=== PATIENT | male | born 1970 | race Caucasian/White ===

== ENCOUNTER 2023-08-31 08:42 | Emergency (ER) | payer OTHER ==
[~2023-08-31] VITALS: Ht 182.9 cm; Wt 145.2 kg
[2023-08-31 08:50] VITALS: BP 72/53
[2023-08-31] MEDS ORDERED: NS 1,000 ML IV ONE (08:50)
[2023-08-31] MEDS ORDERED: Tranexamic Acid 1000 MG/10 ML 10ML Vial (SDV) ONE (08:55)
--- NOTE | 2023-08-31 09:00 | NUR ---
"Spiritual Care | Trauma Team Pt. joseph nguyen treated in ED and then was being brought to radiologu for CatScans. During this time this Cloth Dye Range Operator met with spouse and Pts. daughter in the ED waiting room. Facilitated a short life review. Considered matters of randell and belief. Prayer with Spouse and daughter. Both verbalizwed gratitude for the spiritual care visit. This corrugator operator will remain available to the Pt. and family."
[2023-08-31 09:12] LABS: EOSINOPHILS ABSOLUTE AUTO 0.07 K/mm3 (0.00-0.68); EOSINOPHILS PERCENT AUTO 0 % (0-6); Hematocrit 49.5 % (37.0-53.0); Hemoglobin 15.7 g/dL (13.5-17.5); IMMATURE GRAN ABSOLUTE AUTO 0.66 K/mm3 (0.00-0.10); IMMATURE GRAN PERCENT AUTO 2 % (0-1); LYMPHOCYTES ABSOLUTE AUTO 6.05 K/mm3 (0.84-5.20); LYMPHOCYTES PERCENT AUTO 22 % (21-46); MONOCYTES ABSOLUTE AUTO 1.27 K/mm3 (0.16-1.47); MONOCYTES PERCENT AUTO 5 % (4-13); Mean Corpuscular HGB Conc 31.7 g/dL (31.5-36.5); Mean Corpuscular Volume 85 fL (80-100); Mean Platelet Volume 10.7 fL (9.1-12.4); NEUTROPHILS ABSOLUTE AUTO 19.93 K/mm3 (1.96-9.15); NEUTROPHILS PERCENT AUTO 71 % (41-73); NRBC ABSOLUTE 0.05 K/mm3 (0.00-0.02); NRBC Auto 0.2 /100 WBC (0.0-0.2); Platelet Count 394 K/mm3 (150-400); RDW Coefficient Variation 14.1 % (11.7-14.2); Red Blood Cell Count 5.81 M/mm3 (4.30-5.90); White Blood Cell Count 28.01 K/mm3 (4.00-11.30)
[2023-08-31 09:13] LABS: BASOPHILS ABSOLUTE AUTO 0.03 K/mm3 (0.00-0.23); BASOPHILS PERCENT AUTO 0 % (0-2)
[2023-08-31] MEDS ORDERED: CeFAZolin Sodium 2,000 MG in NS 100 ML IV ONE (09:25)
[2023-08-31] MEDS ORDERED: Diphth,Pertuss(Acell),Tet Vac 0.5 ML VIAL IM ONE (09:25)
[2023-08-31 09:26] LABS: Albumin, Blood 3.6 g/dL (3.4-5.0); Albumin/Globulin Ratio 0.9 (0.8-1.8); Bilirubin, Total 0.6 mg/dL (0.1-1.0); Bun/Creatinine Ratio 17.5 (12.0-20.0); Calcium, Blood 8.9 mg/dL (8.5-10.1); Creatinine, Blood 1.2 mg/dL (0.60-1.20); Total Protein, Blood 7.6 g/dL (6.4-8.2)
[2023-08-31] MEDS ORDERED: Tranexamic Acid 100 ML IV ONE ×2 (09:34→09:45)
[2023-08-31 09:37] LABS: PCO2 Arterial 33.1 mmHg (35-45); pH Blood Arterial 7.32 (7.35-7.45)
[2023-08-31 09:38] LABS: PO2 Arterial 76.2 mmHg (80-100)
[2023-08-31] MEDS ORDERED: Metoprolol Tartrate 5 ML IV ONE ×2 (10:05→10:24)
[2023-08-31 10:09] LABS: BAND PERCENT MAN 3 % (0-8); BASOPHILS PERCENT MAN 0 % (0-2); EOSINOPHILS PERCENT MAN 0 % (0-6); LYMPHOCYTES ABSOLUTE MAN 7.56 K/mm3 (0.84-5.20); LYMPHOCYTES PERCENT MAN 27 % (21-46); MONOCYTES ABSOLUTE MAN 0.56 K/mm3 (0.16-1.47); MONOCYTES PERCENT MAN 2 % (4-13); NEUTROPHILS ABSOLUTE MAN 19.88 K/mm3 (1.96-9.15); SEG NEUTROPHILS PERCENT MAN 68 % (41-73); TOTAL CELLS COUNTED 100
[2023-08-31] MEDS ORDERED: Metoprolol Tartrate 1 MG/ML 5 ML VIAL IV ONE (10:10)
[2023-08-31] MEDS ORDERED: FentaNYL Citrate 50 MCG/ML 2 ML Injection IV ONE (10:15)
== END 2023-08-31 10:25 | disposition short-term general hospital (02) ==
LOC: ER 08:42
PROVIDERS: Emergency Medicine
DX: S22.43XA Multiple fractures of ribs, bilateral, initial encounter for closed fracture (principal); S25.01XA Minor laceration of thoracic aorta, initial encounter; S27.331A Laceration of lung, unilateral, initial encounter; S36.113A Laceration of liver, unspecified degree, initial encounter; S81.812A Laceration without foreign body, left lower leg, initial encounter; S27.2XXA Traumatic hemopneumothorax, initial encounter; V04.90XA Pedestrian on foot injured in collision with heavy transport vehicle or bus, unspecified whether traffic or nontraffic accident, initial encounter
CPT/HCPCS: 36600; 70450; 71045; 71260; 72125; 72170; 73030; 73590; 74177; 80053; 82803; 84484; 85025; 90715; J0690; J3010; J7030; P9016; P9035; P9059; Q9967

== ENCOUNTER 2023-10-14 07:45 | Inpatient (IN) | payer OTHER ==
[~2023-10-14] VITALS: Ht 182.9 cm; Wt 138.9 kg
[2023-10-14] MEDS ORDERED: HYDROmorphone HCl/Pf 1MG SYR IV ONE ×4 (08:20→18:00)
[2023-10-14] MEDS ORDERED: Ondansetron HCl 2 MG / ML 2ML Vial IV ONE ×2 (08:20→18:00)
[2023-10-14] MEDS ORDERED: Lactated Ringer's 1,000 ML IV ONE ×2 (08:20→09:10)
[2023-10-14] MEDS ORDERED: Ondansetron 4 MG SoluTab SL ONE (08:35)
[2023-10-14 09:04] LABS: Albumin, Blood 3.8 g/dL (3.4-5.0); Albumin/Globulin Ratio 0.9 (0.8-1.8); Bilirubin, Total 2.6 mg/dL (0.1-1.0); Bun/Creatinine Ratio 24.8 (12.0-20.0); Calcium, Blood 9.6 mg/dL (8.5-10.1); Creatinine, Blood 0.65 mg/dL (0.60-1.20); Globulin, Blood 4.4 g/dL (2.2-4.0); Potassium, Blood 4.1 mmol/L (3.5-5.5); Total Protein, Blood 8.2 g/dL (6.4-8.2)
[2023-10-14] MEDS ORDERED: Piperacillin/Tazobactam Sod 4.5 GM in NS 100 ML IV ONE (09:30)
[2023-10-14] MEDS ORDERED: Piperacillin/Tazobactam Sod 4.5 GM ONE (09:45)
[2023-10-14] MEDS ORDERED: NS 100 ML IV ONE (09:46)
[2023-10-14 09:57] LABS: BASOPHILS ABSOLUTE AUTO 0.03 K/mm3 (0.00-0.23); BASOPHILS PERCENT AUTO 0 % (0-2); EOSINOPHILS ABSOLUTE AUTO 0.01 K/mm3 (0.00-0.68); EOSINOPHILS PERCENT AUTO 0 % (0-6); Hematocrit 46.5 % (37.0-53.0); Hemoglobin 14.7 g/dL (13.5-17.5); IMMATURE GRAN ABSOLUTE AUTO 0.07 K/mm3 (0.00-0.10); IMMATURE GRAN PERCENT AUTO 1 % (0-1); LYMPHOCYTES ABSOLUTE AUTO 1.47 K/mm3 (0.84-5.20); LYMPHOCYTES PERCENT AUTO 14 % (21-46); MONOCYTES ABSOLUTE AUTO 0.86 K/mm3 (0.16-1.47); MONOCYTES PERCENT AUTO 8 % (4-13); Mean Corpuscular HGB 25.4 pg (26.0-34.0); Mean Corpuscular HGB Conc 31.6 g/dL (31.5-36.5); Mean Corpuscular Volume 80 fL (80-100); Mean Platelet Volume 9.2 fL (9.1-12.4); NEUTROPHILS ABSOLUTE AUTO 8.31 K/mm3 (1.96-9.15); NEUTROPHILS PERCENT AUTO 77 % (41-73); Platelet Count 296 K/mm3 (150-400); RDW Coefficient Variation 15.1 % (11.7-14.2); RDW Standard Deviation 43.4 fL (35.1-46.3); Red Blood Cell Count 5.79 M/mm3 (4.30-5.90); White Blood Cell Count 10.75 K/mm3 (4.00-11.30)
[2023-10-14] MEDS ORDERED: NS 1,000 ML IV SCH (17:00)
[2023-10-14] MEDS ORDERED: HYDROmorphone HCl/Pf 1MG SYR IV PRN (17:40)
[2023-10-14 17:50] LABS: Source, Urine Clean Catch
[2023-10-14 17:57] LABS: Appearance, Urine Cloudy (Clear); Bilirubin, Urine Neg (Neg); Blood, Urine Neg (Neg); Color, Urine Yellow (P-Yellow); Glucose Qualitative, Urine Neg (Neg); Ketones, Urine Neg (Neg); Leukocyte Esterase, Urine 1+ (Neg); Nitrite, Urine Neg (Neg); Protein, Urine 2+ (Neg); Urobilinogen, Urine 1+ (Normal)
[2023-10-14 18:04] LABS: Amorphous Mod (0-Heavy); Bacteria Few /hpf; Red Blood Cells, Urine 0-2 /hpf (0-2); Squamous Epithelial Cells Not Seen /hpf (Few)
[2023-10-14] MEDS ORDERED: Metoprolol Tartrate 25 MG Tab PO ONE (18:30)
[2023-10-15] MEDS ORDERED: HYDROmorphone HCl/Pf 1MG SYR IV PRN ×2 (00:05→23:10)
[2023-10-15] MEDS ORDERED: Ondansetron 4 MG SoluTab MM PRN (00:10)
[2023-10-15] MEDS ORDERED: Ciprofloxacin 400MG/D5 200ML 200 ML IV ONE (00:50)
[2023-10-15] MEDS ORDERED: MetroNIDAZOLE 500MG/NS 100 ml 100 ML IV ONE (00:50)
[2023-10-15] MEDS ORDERED: Lactated Ringer's 1,000 ML IV SCH ×2 (01:00→18:45)
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
--- NOTE | 2023-10-15 05:12 | NUR ---
URINE SAMPLE COLLECTED AND SENT TO LAB. LR INFUSING @ 225mL/HR. WCTM.
[2023-10-15] MEDS ORDERED: NS 250 ML IV PRN (05:20)
[2023-10-15 07:47] VITALS: BP 135/65
[2023-10-15] MEDS ORDERED: Lactobacil 2-S.Thermo-Bifido 1 1 Cap PO SCH (09:00)
[2023-10-15] MEDS ORDERED: Enoxaparin 40 MG/0.4 ML SYR SC SCH (09:00)
[2023-10-15] MEDS ORDERED: MetroNIDAZOLE 500MG/NS 100 ml 100 ML IV SCH (09:00)
[2023-10-15] MEDS ORDERED: Ciprofloxacin 400MG/D5 200ML 200 ML IV SCH ×2 (09:00→10:00)
[2023-10-15 09:45] LABS: BASOPHILS ABSOLUTE AUTO 0.04 K/mm3 (0.00-0.23); BASOPHILS PERCENT AUTO 0 % (0-2); EOSINOPHILS ABSOLUTE AUTO 0.02 K/mm3 (0.00-0.68); EOSINOPHILS PERCENT AUTO 0 % (0-6); Hematocrit 39.7 % (37.0-53.0); Hemoglobin 12.3 g/dL (13.5-17.5); IMMATURE GRAN ABSOLUTE AUTO 0.11 K/mm3 (0.00-0.10); IMMATURE GRAN PERCENT AUTO 1 % (0-1); LYMPHOCYTES ABSOLUTE AUTO 1.16 K/mm3 (0.84-5.20); LYMPHOCYTES PERCENT AUTO 7 % (21-46); MONOCYTES ABSOLUTE AUTO 1.17 K/mm3 (0.16-1.47); MONOCYTES PERCENT AUTO 7 % (4-13); Mean Corpuscular HGB 25.6 pg (26.0-34.0); Mean Corpuscular Volume 83 fL (80-100); Mean Platelet Volume 9.6 fL (9.1-12.4); NEUTROPHILS ABSOLUTE AUTO 14.64 K/mm3 (1.96-9.15); NEUTROPHILS PERCENT AUTO 86 % (41-73); Platelet Count 262 K/mm3 (150-400); RDW Coefficient Variation 15.7 % (11.7-14.2); RDW Standard Deviation 47.2 fL (35.1-46.3); Red Blood Cell Count 4.81 M/mm3 (4.30-5.90); White Blood Cell Count 17.14 K/mm3 (4.00-11.30)
[2023-10-15 09:50] LABS: International Normalized Ratio 1.26; Prothrombin Time Results 13.3 Sec (9.7-11.5)
[2023-10-15 10:11] LABS: Albumin, Blood 3.1 g/dL (3.4-5.0); Albumin/Globulin Ratio 0.8 (0.8-1.8); Bilirubin, Total 1.4 mg/dL (0.1-1.0); Bun/Creatinine Ratio 18.9 (12.0-20.0); Calcium, Blood 8.8 mg/dL (8.5-10.1); Creatinine, Blood 0.64 mg/dL (0.60-1.20); Globulin, Blood 3.8 g/dL (2.2-4.0); Potassium, Blood 4.2 mmol/L (3.5-5.5); Total Protein, Blood 6.9 g/dL (6.4-8.2)
[2023-10-15 15:13] VITALS: BP 158/82
--- NOTE | 2023-10-15 17:24 | NUR ---
NO ACUTE CHANGES, PAIN MEDICATIONS INCREASED FOR COMFORT, TO HAVE MRI AT 1800, HELPFUL AT BEDSIDE, [facility] REPORTED TODAY THAT PATIENT IS STILL ACCEPTED BUT THERE IS NOT A BED AVAILABLE. PATIENT USING IS FOR SHALLOW SLOW RESPIRATIONS. VSS, CONCENTRATED TEA COLORED URINE, LS DIM IN THE BASES, CALL LIGHT WITH IN REACH, WILL RELAY TO PM RN
[2023-10-15] MEDS ORDERED: METOPROLOL TART25 MG PO (18:10)
[2023-10-15] MEDS ORDERED: ELIQUIS5 M3 PO (18:11)
--- NOTE | 2023-10-15 18:16 | NUR ---
PATIENT TO MRI NOW
[2023-10-15 20:22] VITALS: BP 124/71
[2023-10-15] MEDS ORDERED: Naloxone HCl 0.4MG / ML 1ML Vial IV PRN (23:10)
[2023-10-15 23:24] LABS: Hematocrit 38.7 % (37.0-53.0); Hemoglobin 11.9 g/dL (13.5-17.5)
--- NOTE | 2023-10-16 01:08 | NUR ---
PHYSICIAN CONTACT AND CALL FROM [facility] PHONE CALL TO CHEMICAL DEPENDENCY ATTENDANT/DR MIGUEL AT 2300 TO REPORT MRI RESULTS HAD BEEN READ AND REPORT ELECTRONICALLY SIGNED. MRI SHOWS POSSIBLE HEPATIC HEMATOMA AND POSSIBLE ADRENAL GLAND HEMORAGE WITH CONFIRMED PACREATITIS. NEW ORDER TO CHECK HGB NOW AND AGAIN IN THE MORNING. INFORMED DR OF STATUS OF VITALS AND PERSISTANT PAIN. REQUESTED REVIEW FOR MORE FREQUENT DOSING. DR INCREASED DILAUDID DOSAGE AND KEPT AT SAME INTERVAL [id number]. NEW ORDER FOR CONTINUOUS PULSE OX. DR AWARE PT IS WAITING FOR A BED WITH [facility]. PHONE CALL FROM SUNDAY AT 0100 IN THE TRANSFER CENTER AT [facility]; REQUESTING UPDATE ON PT STATUS. ADVISED OF MRI RESULTS, WBC, HGB, VITALS, AND CURRENT MEDICATIONS. SUNDAY REQUESTED RESULTS FROM MRI BE FORWARDED TO [facility]; SHE ALSO REQUESTED CONTACT [facility] IF PT CONDITION CHANGES. PT IS CURRENTLY AWAITING A [facility] BED BUT IF STATUS OF PT CHANGES, PLEASE INFORM SOON POSSIBLE. NO ETA AT THIS TIME OF WHEN BED WILL BE AVAILABLE. PHONE NUMBER FOR [facility] TRANSFER CENTER IS [phone]. PHONE CALL TO IMAGING, SPOKE TO KAYE. ADVISED OF PHONE CALL FROM [facility] AND [facility] REQUEST TO FORWARD MRI RESULTS. KAYE CONFIRMED SHE WOULD ATTEMPT TO SEND IMAGES THROUGH [facility]. PROVIDED NAME OF PERSON SPOKE WITH AT [facility]. PROVIDED PT NAME, , AND ROOM NUMBER.
[2023-10-16 04:11] VITALS: BP 125/69
[2023-10-16 04:24] LABS: BASOPHILS ABSOLUTE AUTO 0.05 K/mm3 (0.00-0.23); BASOPHILS PERCENT AUTO 0 % (0-2); EOSINOPHILS ABSOLUTE AUTO 0.14 K/mm3 (0.00-0.68); EOSINOPHILS PERCENT AUTO 1 % (0-6); Hemoglobin 12.1 g/dL (13.5-17.5); IMMATURE GRAN ABSOLUTE AUTO 0.07 K/mm3 (0.00-0.10); IMMATURE GRAN PERCENT AUTO 1 % (0-1); LYMPHOCYTES ABSOLUTE AUTO 1.65 K/mm3 (0.84-5.20); LYMPHOCYTES PERCENT AUTO 11 % (21-46); MONOCYTES ABSOLUTE AUTO 1.59 K/mm3 (0.16-1.47); MONOCYTES PERCENT AUTO 11 % (4-13); Mean Corpuscular HGB 25.9 pg (26.0-34.0); Mean Corpuscular Volume 84 fL (80-100); Mean Platelet Volume 9.5 fL (9.1-12.4); NEUTROPHILS ABSOLUTE AUTO 11.51 K/mm3 (1.96-9.15); NEUTROPHILS PERCENT AUTO 77 % (41-73); Platelet Count 227 K/mm3 (150-400); RDW Coefficient Variation 15.6 % (11.7-14.2); RDW Standard Deviation 47.3 fL (35.1-46.3); Red Blood Cell Count 4.67 M/mm3 (4.30-5.90); White Blood Cell Count 15.01 K/mm3 (4.00-11.30)
[2023-10-16 04:56] LABS: Albumin, Blood 2.8 g/dL (3.4-5.0); Albumin/Globulin Ratio 0.7 (0.8-1.8); Bilirubin, Total 5.8 mg/dL (0.1-1.0); Calcium, Blood 8.8 mg/dL (8.5-10.1); Creatinine, Blood 0.69 mg/dL (0.60-1.20); Globulin, Blood 3.8 g/dL (2.2-4.0); Potassium, Blood 4.3 mmol/L (3.5-5.5); Total Protein, Blood 6.6 g/dL (6.4-8.2)
--- NOTE | 2023-10-16 06:35 | NUR ---
PHYSICAL SCIENTIST SUMMARY SEE PREVIOUS NURSE NOTE WITH PHYSICIAN CONTACT AND [facility] CONTACT-- PT A/OX4. ABLE TO MAKE NEEDS KNOWN. PT PAIN MORE MANAGED WITH INCREASE DOSE OF DILAUDID. PT URINE THE COLOR OF DARK TEA AND OUTPUT FOR SHIFT WAS ONLY 425MLS. PT DENIES SENSATION OF FULL BLADDER. PT DOES REPORT HE FEELS FULL/BLOATED; ABD IS BLOATED AND PAINFUL. PT PLACED ON 2L OF 02 NC DUE TO DROP IN OXYGEN SATURATION AFTER PAIN MEDICATIONS. WHEN AWAKE/ALERT PT OXYGEN SATURATIONS ARE WNL. PT IS ABLE TO MAKE NEEDS KNOWN--CALL LIGHT ACCESSIBLE.
[2023-10-16 07:44] VITALS: BP 130/85
--- NOTE | 2023-10-16 12:38 | NUR ---
PATIENT WITH MULTIPLE FAMILY MEMBERS AT BEDSIDE WITH QUESTIONS. ASKED PATIENT IF HE WOULD LIKE TO KNOW HIS LACTIC ACID LEVEL AND GLUCOSE LEVEL AND HE SAID YES. ASKED IF OKAY WITH REVIEWING WHILE FAMILY AT BEDSIDE AND HE AGREED. DISCUSSION REGARDING SAIF AND IMPORTANCE OF ABIDING BY PROVIDER'S ORDERS. ENSURED VERBAL RELEASE OF INFORMATION SIGNED AND HAD DAUGHTER'S INFORMATION ON IT SHE HAS MANY QUESTIONS. TIME SPENT DESCALATING AND PROVIDING EDUCATION.
[2023-10-16 14:32] VITALS: BP 139/78
--- NOTE | 2023-10-16 16:17 | NUR ---
SHIFT SUMMARY; PATIENTS WOUND DRESSING CHANGE TO LEFT LOWER LEG. HEALING WELL AND NO EXUDATE OR SWELLING NOTED. PATIENT WAITING FOR BED AT [facility] PER REPORT. PATIENT AMBULATES IN HALLWAY DURING DAY USING FWW WITHOUT DIFFICULTY. DAUGHTER AND SPOUSE ACCOMPANY HIM. VITAL SIGNS ARE STABLE. HE IS SLIGHTLY TACHY WHEN PAIN MEDICATION WEARS OFF BUT RECOVERS QUICKLY.
--- NOTE | 2023-10-16 18:11 | NUR ---
TRANSFER NOTE ASSUMED CARE OF THIS PT AT 1630. NO NEW EVENTS SINCE THE ASSUMPTION. PT CALLS AND MAKES HIS NEEDS KNOWN. FAMILY AT THE BS. WILL REPORT TO ONCOMING NURSE. BED IN THE LOWEST POSITION WITH THE CALL LIGHT WITHIN REACH.
[2023-10-16] MEDS ORDERED: Calcium Carbonate 500 MG Tab Chew PO PRN (18:20)
[2023-10-16 20:20] VITALS: BP 121/80
[2023-10-16] MEDS ORDERED: Polyethylene Glycol 3350 17 gm PO SCH (21:00)
[2023-10-16] MEDS ORDERED: Sennosides 8.6 MG Tab PO SCH (21:00)
[2023-10-17 02:35] VITALS: BP 121/61
[2023-10-17] MEDS ORDERED: Docusate Sodium/Senna 1 Tab PO PRN (05:40)
[2023-10-17 05:46] LABS: Albumin, Blood 2.6 g/dL (3.4-5.0); Albumin/Globulin Ratio 0.7 (0.8-1.8); Bilirubin, Total 3.4 mg/dL (0.1-1.0); Bun/Creatinine Ratio 12.6 (12.0-20.0); Creatinine, Blood 0.48 mg/dL (0.60-1.20); Globulin, Blood 3.8 g/dL (2.2-4.0); Potassium, Blood 4.3 mmol/L (3.5-5.5); Total Protein, Blood 6.4 g/dL (6.4-8.2)
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
[2023-10-17 07:50] VITALS: BP 123/75
--- NOTE | 2023-10-17 11:03 | NUR ---
DR DIALLO TO BEDSIDE TO CONSULT.
[2023-10-17 14:58] VITALS: BP 136/84
[2023-10-17] MEDS ORDERED: OxyCODONE 5 mg/Acetamin 325 mg TABLET PO PRN (17:30)
[2023-10-17] MEDS ORDERED: Enoxaparin 40 MG/0.4 ML SYR SC SCH (18:00)
[2023-10-17 20:39] VITALS: BP 126/74
[2023-10-17] MEDS ORDERED: Miconazole Nitrate 2% 85 GM PWD TOP SCH (21:00)
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
[2023-10-18 02:55] VITALS: BP 148/95
--- NOTE | 2023-10-18 05:14 | NUR ---
DRAMATIC AGENT SUMMARY PT IS A/OX4 W/SOME FORGETULNESS. PT IS ABLE TO MAKE NEEDS KNOWN. DAUGHTER AT BEDSIDE FOR A FEW HOURS IN THE EVENING. PT CONTINUES TO EXPRESS CONCERN FOR ABD PRESSURE; STATING HE FEELS FULL UP TO HIS NECK; DIFFICULTY TOLERATING ANY PO INTAKE/PILLS. HE IS ABLE TO KEEP THEM DOWN WITH NAUSEA; ZOFRAN GIVEN. PT LEGS/FEET ARE SWOLLEN WITH NON-PITTING EDEMA. PT IS CONTINUING TO GET LR AT 150MLS HR; STRICT I&O'S HAVE NOT BEEN DOCUMENTED; HOWEVER APPEARS TO BE FLUID IMBALANCE AND DIMINISHED URINE OUTPUT. PT WEIGHT THIS AM IS 149.4KG WITH INCREASE OF 4.4KG (9.7LBS) IN THREE DAYS. PT IS GETTING BOWEL CARE; NO BM AND PT DENIES FEELING CONSTIPATED OR NEED FOR BOWEL MOVEMENT. PT EDUCATION ON EFFECT OF PAIN MED REGARDING CONSTIPATION. PT AGREEABLE TO CUTTING BACK ON PAIN MEDS AND FEELS PAIN IS IMPROVING. ONE ORAL PERCOSET DURING THE SHIFT. PT REQUIRING 2L O2 WHEN SLEEPING DUE TO DESAT. PT ON CONTINUOUS PULSE OX. PHONE CALL FROM STEFFANY AT THE [facility] TRANSFER CENTER. STILL NO BED AVAILABLE BUT REQUESTING UPDATE. ADVISED STEFFANY OF SURGICAL CONSULT RESULTS WITH NO NEED FOR SURGICAL INTERVENTION AND POTENTIAL DISCHARGE. ALSO ADVISED OF LABS AND CURRENT CONCERN/CONDITION OF PT. STEFFANY ADVISED THEY WOULD STILL CALL FOR UPDATES. REQUESTED NOTIFICATION IF PT IS INFACT DISCHARGED.
[2023-10-18 05:48] LABS: Albumin, Blood 2.4 g/dL (3.4-5.0); Albumin/Globulin Ratio 0.6 (0.8-1.8); Bilirubin, Total 1.9 mg/dL (0.1-1.0); Bun/Creatinine Ratio 11.2 (12.0-20.0); Calcium, Blood 8.8 mg/dL (8.5-10.1); Creatinine, Blood 0.54 mg/dL (0.60-1.20); Globulin, Blood 3.9 g/dL (2.2-4.0); Potassium, Blood 3.3 mmol/L (3.5-5.5); Total Protein, Blood 6.3 g/dL (6.4-8.2)
[2023-10-18 07:17] VITALS: BP 143/78
[2023-10-18] MEDS ORDERED: NS 250 ML IV PRN (11:25)
[2023-10-18] MEDS ORDERED: Metoclopramide HCl 5MG / ML 2ML Vial IV PRN (11:30)
[2023-10-18] MEDS ORDERED: Potassium Chl 20MEQ/Water100ML 100 ML IV ONE (11:30)
[2023-10-18] MEDS ORDERED: Pantoprazole Sodium 40 MG Injection IV SCH (11:30)
--- NOTE | 2023-10-18 13:29 | NUR ---
DR. TELLEZ ROUNDED AT APPROXIMATELY 1100. FAMILY PRESENT WHEN SHE ROUNDED AND MULTIPLE CONCERNS DISCUSSED. THIS RN DISCUSSED WEIGHT GAIN FROM ADMIT WITH BLE EDEMA 2-3+, LUNG SOUNDS DIM BUT CLEAR. DISCUSSED PT HAVING BURING IN HIS THROAT AND EPIGASTRIC DISCOMFORT, PROTONIX ORDERED. PT CHANGED BACK TO SIPS AND CHIPS DIET TO ADVANCE TOLERATED TO CLEAR LIQUID TRAYS. NOTIFIED DR. TELLEZ OF LOW POTASSIUM. DR. TELLEZ ASKED THIS RN TO REACH OUT TO DR. DIALLO AND ASK HIM TO ROUND ON PT AGAIN TODAY, DR. DIALLO REQUESTED THIS RN REACH OUT TO DR. VEE SINCE HE COVERING FOR DR. DIALLO. DISCUSSED LOW ALBUMIN WITH DR. TELLEZ, PER DR. TELLEZ KITCHEN PORTER CONSULT NOT INDICATED AT THIS TIME.
--- NOTE | 2023-10-18 13:39 | NUR ---
DR. VEE NOTIFIED OF REQUEST BY DR. TELLEZ TO ROUND ON PT TODAY.
[2023-10-18] MEDS ORDERED: HYDROmorphone HCl/Pf 1MG SYR IV PRN (14:50)
[2023-10-18 15:19] VITALS: BP 140/70
[2023-10-18] MEDS ORDERED: Nystatin 100,000 Unit/ML Susp 5 ML UDC MT SCH (17:00)
[2023-10-18 19:22] VITALS: BP 121/70
[2023-10-18] MEDS ORDERED: Fluconazole 100 MG Tab PO SCH (19:50)
--- NOTE | 2023-10-18 20:01 | NUR ---
SHIFT SUMMARY PT HAS REPORTED EPIGASTRIC DISCOMFORT MUCH OF THE DAY, HE REPORTS FEELING TO FULL. PT TRANSITIONED FROM FULL LIQUID DIET TO CLEAR LIQUID SIPS AND CHIPS ONLY. PT STARTED ON PROTONIX FOR EPIGASTRIC DISCOMFORT AND REGLAN FOR NAUSEA. PT HAS HAD BMS X2. HE IS A SBA WHEN OOB. PT HAS ALSO COMPLAINED OF A BURNING FEELING IN HIS THROAT, SORENESS TO THE SIDES OF HIS TONGUE, AND METALIC TASTE, DR. TELLEZ NOTIFIED AND ORDERED NYSTATIN SWISH AND SWALLOW, PT WAS ALSO SEEN BY THE DENTAL HYGENIST. THIS EVENING HE REPORTED A SORE IN HIS MOUTH, RAD RODRIGEZ NOTIFIED. PT HAS REDNESS AND PAIN TO GROIN/PENIS, APPEARS TO HAVE A YEAST INFECTION, DURING BEDSIDE REPORT PT DECLINED DESONEX POWDER, ANGEL LEROY RN TO F/U REGARDING PO OR CREAM ANTIFUNGAL. PT ALSO REPORTS BURINING WITH URINATION, RAD RODRIGEZ NOTIFIED. PT'S FAMILY HAS BEEN AT THE BEDSIDE AND SUPPORTIVE T/O THE DAY. EDUCATION REGARDING PT'S CONDITION PROVIDED AND QUESTIONS ANSWERED. BEDSIDE REPORT GIVEN TO RAD RODRIGEZ.
[2023-10-18] MEDS ORDERED: Miconazole Nitrate 28 GM CREAM..G. TOP SCH (21:00)
[2023-10-19 02:40] VITALS: BP 149/92
[2023-10-19 05:29] LABS: BASOPHILS ABSOLUTE AUTO 0.04 K/mm3 (0.00-0.23); BASOPHILS PERCENT AUTO 1 % (0-2); EOSINOPHILS ABSOLUTE AUTO 0.24 K/mm3 (0.00-0.68); EOSINOPHILS PERCENT AUTO 3 % (0-6); Hematocrit 34.8 % (37.0-53.0); Hemoglobin 10.7 g/dL (13.5-17.5); IMMATURE GRAN ABSOLUTE AUTO 0.12 K/mm3 (0.00-0.10); IMMATURE GRAN PERCENT AUTO 1 % (0-1); LYMPHOCYTES ABSOLUTE AUTO 1.54 K/mm3 (0.84-5.20); LYMPHOCYTES PERCENT AUTO 18 % (21-46); MONOCYTES ABSOLUTE AUTO 0.91 K/mm3 (0.16-1.47); MONOCYTES PERCENT AUTO 10 % (4-13); Mean Corpuscular HGB 25.2 pg (26.0-34.0); Mean Corpuscular HGB Conc 30.7 g/dL (31.5-36.5); Mean Corpuscular Volume 82 fL (80-100); Mean Platelet Volume 8.8 fL (9.1-12.4); NEUTROPHILS PERCENT AUTO 67 % (41-73); Platelet Count 254 K/mm3 (150-400); RDW Coefficient Variation 15.3 % (11.7-14.2); Red Blood Cell Count 4.24 M/mm3 (4.30-5.90); White Blood Cell Count 8.75 K/mm3 (4.00-11.30)
[2023-10-19 06:07] LABS: Albumin, Blood 2.4 g/dL (3.4-5.0); Albumin/Globulin Ratio 0.6 (0.8-1.8); Bilirubin, Total 1.4 mg/dL (0.1-1.0); Bun/Creatinine Ratio 10.4 (12.0-20.0); Calcium, Blood 8.8 mg/dL (8.5-10.1); Creatinine, Blood 0.58 mg/dL (0.60-1.20); Globulin, Blood 3.7 g/dL (2.2-4.0); Potassium, Blood 3.5 mmol/L (3.5-5.5); Total Protein, Blood 6.1 g/dL (6.4-8.2)
--- NOTE | 2023-10-19 06:46 | NUR ---
BRANCH LENDING MANAGER SUMMARY PT A/OX4. NO ACUTE CHANGES. CALL TO MIXING OPERATOR/DR MARX; NEW ORDER FOR ORAL DIFLUCAN TO TX WIN RASH; NEW ORDER FOR MICONOZOLE CREAM TO TX WIN RASH. D/C FUNGAL POWDER. PT IS ABL ETO MAKE NEEDS KNOWN. CALL LIGHT IN REACH. PT DENIES PAIN; CONTINUES TO REPORT FULL/BLOATED FEELING.
[2023-10-19 07:45] VITALS: BP 148/87
[2023-10-19] MEDS ORDERED: Enoxaparin 150 MG/ML 1ML SYR SC SCH (10:15)
[2023-10-19 14:41] VITALS: BP 140/75
--- NOTE | 2023-10-19 17:02 | NUR ---
SHIFT SUMMARY PT AMBULATED THIS AM. ATTEMPT TO HAVE BM, PT STATES HE HAD VERY SMALL LIQ STOOL. PT SHOWERED TODAY. THOUROUGH CLEANSING TO PENIS DONE AFTER PT SHOWERED & NYSTATIN APPLIED TO AREA. POOR APPETITE. PT REFUSING CLEAR LIQ DIET. REFUSED MIRALAX TODAY. ENCAOURGING PT TO TAKE SIPS OF ICE WATER TO HELP KEEP MOUTH MOIST. PT COMPLAINS MOUTH/THROAT HURT AND HE HAD ABD PRESSURE, MAKING HIM NOT WANT TO DRINK OR EAT. ORAL CARE COMPLETED TODAY & NYSTATIN SWISH & SWALLOW ORDERED. PG RUNNING LR AT 100ML/HR. PT DENIES OTHER NEEDS AT THIS TIME. FLAT AFFECT. VISITS FROM FAMILY T/O DAY. DR. MILLIGAN IN TO CONSULT TODAY. LOVENOX ORDER CHANGED & ADMINISTERED. NO OTHER ACUTE CHANGES IN ASSESSMENT AT THIS TIME. VS REVIEWED. CALL LIGHT IN REACH. DENIES OTHER NEEDS AT THIS TIME.
[2023-10-19] MEDS ORDERED: Benzocaine Oral Spray 0.5ML UD MT PRN (17:20)
[2023-10-19 19:27] VITALS: BP 144/84
[2023-10-20 04:41] VITALS: BP 144/80
[2023-10-20 07:35] VITALS: BP 145/83
[2023-10-20 08:55] LABS: BASOPHILS ABSOLUTE AUTO 0.05 K/mm3 (0.00-0.23); BASOPHILS PERCENT AUTO 1 % (0-2); EOSINOPHILS ABSOLUTE AUTO 0.27 K/mm3 (0.00-0.68); EOSINOPHILS PERCENT AUTO 3 % (0-6); Hematocrit 35.2 % (37.0-53.0); Hemoglobin 10.9 g/dL (13.5-17.5); IMMATURE GRAN ABSOLUTE AUTO 0.32 K/mm3 (0.00-0.10); IMMATURE GRAN PERCENT AUTO 4 % (0-1); LYMPHOCYTES PERCENT AUTO 21 % (21-46); MONOCYTES ABSOLUTE AUTO 0.75 K/mm3 (0.16-1.47); MONOCYTES PERCENT AUTO 9 % (4-13); Mean Corpuscular HGB 25.1 pg (26.0-34.0); Mean Corpuscular Volume 81 fL (80-100); Mean Platelet Volume 9.2 fL (9.1-12.4); NEUTROPHILS ABSOLUTE AUTO 5.15 K/mm3 (1.96-9.15); NEUTROPHILS PERCENT AUTO 63 % (41-73); Platelet Count 263 K/mm3 (150-400); RDW Coefficient Variation 15.4 % (11.7-14.2); RDW Standard Deviation 45.3 fL (35.1-46.3); Red Blood Cell Count 4.35 M/mm3 (4.30-5.90); White Blood Cell Count 8.24 K/mm3 (4.00-11.30)
[2023-10-20 09:15] LABS: Albumin, Blood 2.3 g/dL (3.4-5.0); Albumin/Globulin Ratio 0.6 (0.8-1.8); Bilirubin, Total 1.7 mg/dL (0.1-1.0); Bun/Creatinine Ratio 14.2 (12.0-20.0); Calcium, Blood 8.6 mg/dL (8.5-10.1); Creatinine, Blood 0.56 mg/dL (0.60-1.20); Potassium, Blood 3.6 mmol/L (3.5-5.5); Total Protein, Blood 6.3 g/dL (6.4-8.2)
[2023-10-20] MEDS ORDERED: TPN Consult Notification XX ONE (10:45)
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
[2023-10-20 15:52] VITALS: BP 134/81
[2023-10-20] MEDS ORDERED: Parenteral Electolytes 40 ML,Potassium Phosphate Dibasic 30 MM,Multivitamins 10 ML,ZINC... IV SCH (17:00)
[2023-10-20 20:26] VITALS: BP 142/85
[2023-10-21 04:19] VITALS: BP 151/62
[2023-10-21 06:51] LABS: Alanine Aminotransfer (ALT/SGP 112 U/L (12-78); Albumin, Blood 2.5 g/dL (3.4-5.0); Albumin/Globulin Ratio 0.6 (0.8-1.8); Alk Phos 595 U/L (50-136); Anion Gap 14 mmol/L (3-11); Aspartate Aminotrans (AST/SGOT 55 U/L (12-37); Bilirubin, Total 0.8 mg/dL (0.1-1.0); Blood Urea Nitrogen 6 mg/dL (8-24); Bun/Creatinine Ratio 11.5 (12.0-20.0); CO2, Blood 25 mmol/L (21-32); Calcium, Blood 8.8 mg/dL (8.5-10.1); Chloride, Blood 103 mmol/L (98-108); Creatinine, Blood 0.52 mg/dL (0.60-1.20); Globulin, Blood 4.2 g/dL (2.2-4.0); Glomerular Filtration Rate 121 (60-); Glucose, Blood 143 mg/dL (70-99); Phosphorus, Blood 4.2 mg/dL (2.5-4.9); Sodium, Blood 138 mmol/L (136-145); Total Protein, Blood 6.7 g/dL (6.4-8.2); Triglycerides 172 mg/dL (30-160)
[2023-10-21 07:23] VITALS: BP 137/83
--- NOTE | 2023-10-21 07:34 | NUR ---
SHIFT SUMMARY PT IND IN ROOM. SLOW. WALKER IN HALLWAY. PPN INFUSING. THIS AM PT NOTIFIED ME OF SWELLING TO R ARM AND BILATERAL LE. RIGHT UPPER ARM POWERGLIDE INFUSING PROPERLY AND HAVE ADEQUATE BLOOD RETURN. CHARGE NURSE IRWIN ANGUIANO ASSESSED WELL. DOES NOT SEEM TO BE INFILTRATED. ELEVATED ALL EXTREMITIES ON PILLOWS. URINATING VIA URINALS, URINATES 1,200 ML AT ONE TIME OCCASIONALLY WITH VERY MINIMAL ORAL INTAKE. CALLS APPROPRIATELY. BED LOCKED IN LOW POSITION
[2023-10-21] MEDS ORDERED: Furosemide 10 MG/ML 4ML Vial IV SCH (10:00)
[2023-10-21] MEDS ORDERED: TPN Consult Notification XX ONE (11:40)
[2023-10-21 15:40] VITALS: BP 134/81
[2023-10-21] MEDS ORDERED: Parenteral Electolytes 40 ML,Multivitamins 10 ML,ZINC SULF/CUSO4 P-HYD/MN/CR/SE 1 ML,Th... IV SCH (17:00)
--- NOTE | 2023-10-21 18:16 | NUR ---
PT HAS BEEN UP FOR A WALK WITH FAMILY TODAY. HE IS CURENTLY IN THE SHOWER WILL PROVIDE PERICARE WHEN HE IS OUT OF THE SHOWER. PPN IS INFUSING WELL. HE DENIES CP OR SOB. HE WAS MEDICATED FOR 6/10 PAIN PRIOR TO SHOWER. REPORTED PLAN IS FOR POSSIBLE YINKA TOMORROW WITH DR MILLIGAN. PT IS TOELRATING CLEAR LIQUID DIET WELL AND PPN INFUSION. LEG AND POWERGLIDE WERE COVERED FOR SHOWER. NO NAUSEA OR VOITTING THIS SHIFT, BOWEL TONES ARE HYPO-NORMOACTIVE, ABD SOFT AND ROUND. DEPENDANT EDEMA NOTED TO BLE AN BUE WHICH IS IMPROVED WITH LASIX ADMINISTRATION.
[2023-10-21 19:22] VITALS: BP 143/90
[2023-10-22] VITALS (17 sets, daily range): BP systolic 130–171; BP diastolic 74–96
--- NOTE | 2023-10-22 03:35 | NUR ---
PT PRE MEDICATED WITH IV DILAUDID FOR WIN-CARE AND ANTIFUNGAL CREAM ADMINISTRATION TO PENIS. SKIN SURROUNDING SHAFT IS SLOUGHING OFF. RED AND RAW AREAS OF OPEN SKIN. CLEANSED WITH SOAP AND WATER PRIOR TO APPLYING FUNGAL GREAM, PT DID NOT TOLERATE WELL. COULD NOT WIPE TOO HARD WITHOUT RIPPING OFF MORE SKIN. PPN INFUSING IN CHANDA POWERGLIDE, TOLERATING CLEAR LIQUIDS BUT HAS VERY POOR ORAL INTAKE. WITH SIGNIFICANT URINE OUTPUT. EDEMA TO UPPPER AND LOWER EXTREMITIES, WAS STARTED ON IV LASIX YESTERDAY. PLAN FOR CHOLECYSTECOMY WITH DR. MILLIGAN TODAY. NPO AFTER 6 AM. DAILY WEIGHT INPUT.
[2023-10-22 06:01] LABS: BASOPHILS ABSOLUTE AUTO 0.05 K/mm3 (0.00-0.23); BASOPHILS PERCENT AUTO 1 % (0-2); EOSINOPHILS ABSOLUTE AUTO 0.31 K/mm3 (0.00-0.68); EOSINOPHILS PERCENT AUTO 4 % (0-6); Hematocrit 36.2 % (37.0-53.0); Hemoglobin 11.7 g/dL (13.5-17.5); IMMATURE GRAN ABSOLUTE AUTO 0.34 K/mm3 (0.00-0.10); IMMATURE GRAN PERCENT AUTO 5 % (0-1); LYMPHOCYTES ABSOLUTE AUTO 1.88 K/mm3 (0.84-5.20); LYMPHOCYTES PERCENT AUTO 27 % (21-46); MONOCYTES ABSOLUTE AUTO 0.73 K/mm3 (0.16-1.47); MONOCYTES PERCENT AUTO 10 % (4-13); Mean Corpuscular HGB 25.7 pg (26.0-34.0); Mean Corpuscular HGB Conc 32.3 g/dL (31.5-36.5); Mean Corpuscular Volume 80 fL (80-100); Mean Platelet Volume 8.5 fL (9.1-12.4); NEUTROPHILS PERCENT AUTO 53 % (41-73); Platelet Count 207 K/mm3 (150-400); RDW Coefficient Variation 15.5 % (11.7-14.2); RDW Standard Deviation 44.5 fL (35.1-46.3); Red Blood Cell Count 4.55 M/mm3 (4.30-5.90); White Blood Cell Count 7.01 K/mm3 (4.00-11.30)
[2023-10-22 06:28] LABS: Albumin, Blood 2.5 g/dL (3.4-5.0); Albumin/Globulin Ratio 0.6 (0.8-1.8); Bilirubin, Total 0.8 mg/dL (0.1-1.0); Calcium, Blood 8.7 mg/dL (8.5-10.1); Creatinine, Blood 0.53 mg/dL (0.60-1.20); Globulin, Blood 3.9 g/dL (2.2-4.0); Magnesium, Blood 2.2 mg/dL (1.6-2.4); Phosphorus, Blood 4.7 mg/dL (2.5-4.9); Potassium, Blood 3.8 mmol/L (3.5-5.5); Total Protein, Blood 6.4 g/dL (6.4-8.2)
[2023-10-22] MEDS ORDERED: Indocyanine Green 25 MG Vial IV ONE (11:00)
[2023-10-22] MEDS ORDERED: TPN Consult Notification XX ONE (11:55)
[2023-10-22] MEDS ORDERED: Lactated Ringer's 1,000 ML IV SCH (14:10)
--- NOTE | 2023-10-22 14:36 | NUR ---
PT HAS POWERGLIDE TO RIGHT UPPER ARM THAT FLUSHES WELL AND FLOWS TO GRAVITY.
[2023-10-22] MEDS ORDERED: CeFAZolin Sodium 3,000 MG in NS 100 ML IV SCH (14:50)
[2023-10-22] MEDS ORDERED: Rocuronium Bromide 10 MG/ML 5ML Injection IV ONE (15:28)
[2023-10-22] MEDS ORDERED: propofoL 20 ML IV ONE (15:28)
[2023-10-22] MEDS ORDERED: FentaNYL Citrate 50 MCG/ML 2 ML Injection ONE ×2 (15:28→16:04)
[2023-10-22] MEDS ORDERED: Bupivacaine 0.5% HCl 5 MG/ML 30MLVIAL ONE (15:30)
--- NOTE | 2023-10-22 15:39 | NUR ---
PT BROUGHT FROM FLOOR TO [facility] FOR PROCEDURE. PT FAMILY AT BEDSIDE. History, Chart, Medications and Allergies reviewed before start of procedure. Lungs clear T/O to Auscultation. Patient confirms NPO status and agrees with scheduled surgery. Pre-Op teaching done. Pt verbalizes understanding. PT BELONGINGS LEFT WITH FAMILY MEMBERS. PT HAS ABRASIONS ON LEFT CALF AND ABDOMEN. OR TEAM NOTIFIED.
[2023-10-22] MEDS ORDERED: Dexamethasone Sod Phos 10 MG/ML 1ML VIAL ONE (16:09)
[2023-10-22] MEDS ORDERED: Ondansetron HCl 2 MG / ML 2ML Vial ONE (16:21)
[2023-10-22] MEDS ORDERED: Sugammadex Sodium 200 MG/2ML SDV (100 MG/ML) ONE (16:21)
[2023-10-22] MEDS ORDERED: Parenteral Electolytes 40 ML,Multivitamins 10 ML,ZINC SULF/CUSO4 P-HYD/MN/CR/SE 1 ML,Th... IV SCH (17:00)
[2023-10-22] MEDS ORDERED: Metoclopramide HCl 5MG / ML 2ML Vial ONE (17:34)
--- NOTE | 2023-10-22 17:36 | NUR ---
1400- PT TAKEN TO DAY SURGERY. ALL PT BELONGINGS BROUGHT TO ROOM 209.
--- NOTE | 2023-10-22 17:37 | NUR ---
1500- REPORT ATTEMPTED TO BE GIVEN TO SURGERY RN, BUT RN SAID SHE WOULD CALL THIS RN BACK BECAUSE SHE WAS TOO BUSY AT THE MOMENT.
--- NOTE | 2023-10-22 18:15 | NUR ---
1800- REPORT GIVEN TO LAUREN TOMLIN RN ON SURGERY FLOOR. ALL QUESTIONS ANSWERED.
--- NOTE | 2023-10-22 18:41 | NUR ---
POST OP: REPORT RECIEVED FROM MED FLOOR RN AND AUTOMATIC GLUING MACHINE OPERATOR. PT TO UNIT AT ABOUT 1800. PT IS A/O, VSS. PT DENIES ANY PAIN AT THIS TIME. SURGICAL SITES ARE WNL. PT REPORTS SOME NAUSEA, ODT ZOFRAN GIVEN. POWERGLIDE FLUSHED WELL, AND APPEARS WNL. TPN STARTED. PT INSTRUCTED TO USE CALL LIGHT IF NEED OOB. CALL LIGHT IN REACH.
[2023-10-23 03:07] VITALS: BP 144/97
[2023-10-23 05:05] LABS: BASOPHILS ABSOLUTE AUTO 0.06 K/mm3 (0.00-0.23); BASOPHILS PERCENT AUTO 1 % (0-2); EOSINOPHILS ABSOLUTE AUTO 0.01 K/mm3 (0.00-0.68); EOSINOPHILS PERCENT AUTO 0 % (0-6); Hematocrit 39.3 % (37.0-53.0); Hemoglobin 12.5 g/dL (13.5-17.5); IMMATURE GRAN ABSOLUTE AUTO 0.31 K/mm3 (0.00-0.10); IMMATURE GRAN PERCENT AUTO 4 % (0-1); LYMPHOCYTES ABSOLUTE AUTO 1.05 K/mm3 (0.84-5.20); LYMPHOCYTES PERCENT AUTO 13 % (21-46); MONOCYTES ABSOLUTE AUTO 0.24 K/mm3 (0.16-1.47); MONOCYTES PERCENT AUTO 3 % (4-13); Mean Corpuscular HGB 25.5 pg (26.0-34.0); Mean Corpuscular HGB Conc 31.8 g/dL (31.5-36.5); Mean Corpuscular Volume 80 fL (80-100); NEUTROPHILS ABSOLUTE AUTO 6.76 K/mm3 (1.96-9.15); NEUTROPHILS PERCENT AUTO 80 % (41-73); Platelet Count 307 K/mm3 (150-400); RDW Coefficient Variation 15.1 % (11.7-14.2); White Blood Cell Count 8.43 K/mm3 (4.00-11.30)
[2023-10-23 05:38] LABS: Bun/Creatinine Ratio 24.6 (12.0-20.0); Calcium, Blood 9.4 mg/dL (8.5-10.1); Creatinine, Blood 0.53 mg/dL (0.60-1.20); Magnesium, Blood 2.1 mg/dL (1.6-2.4); Phosphorus, Blood 4.1 mg/dL (2.5-4.9); Potassium, Blood 4.7 mmol/L (3.5-5.5)
[2023-10-23 06:58] VITALS: BP 147/88
--- NOTE | 2023-10-23 07:37 | NUR ---
SHIFT SUMMARY NOC. PT POD 1 FOR LAP YINKA. PT A/O X4, PT DENIES PAIN OR NAUSEA THIS SHIFT. PT LAP SITES C/D/I. PT VOIDING URINE, NOT DRINKING FLUIDS, ENCOURAGING PO INTAKE. TPN RUNNING PER ORDERS. PT RESTED WITH EYES CLOSED AND CALL LIGHT IN REACH.
[2023-10-23] MEDS ORDERED: Enoxaparin 40 MG/0.4 ML SYR SC SCH (09:00)
[2023-10-23] MEDS ORDERED: CeFAZolin Sodium 1,000 MG in NS 50 ML IV SCH (12:00)
[2023-10-23 16:49] VITALS: BP 143/88
--- NOTE | 2023-10-23 17:04 | NUR ---
SUMMARY NO ACUTE CHANGES T/O SHIFT. PT AMBULATED IN HALLS WITH SPOUSE THIS AFTERNOON. MEDICATED PER ORDERS FOR PAIN PRIOR TO WALK. TOLERATING CLEAR LIQUIDS. PLAN TO ADVANCE TO FULL LIQUIDS FOR DINNER. CALL LIGHT IN REACH.
[2023-10-23 20:07] VITALS: BP 136/83
[2023-10-24 03:36] VITALS: BP 123/76
[2023-10-24 04:13] LABS: BASOPHILS ABSOLUTE AUTO 0.07 K/mm3 (0.00-0.23); BASOPHILS PERCENT AUTO 1 % (0-2); EOSINOPHILS ABSOLUTE AUTO 0.16 K/mm3 (0.00-0.68); EOSINOPHILS PERCENT AUTO 2 % (0-6); Hematocrit 38.6 % (37.0-53.0); IMMATURE GRAN ABSOLUTE AUTO 0.36 K/mm3 (0.00-0.10); IMMATURE GRAN PERCENT AUTO 4 % (0-1); LYMPHOCYTES ABSOLUTE AUTO 2.82 K/mm3 (0.84-5.20); LYMPHOCYTES PERCENT AUTO 32 % (21-46); MONOCYTES ABSOLUTE AUTO 0.67 K/mm3 (0.16-1.47); MONOCYTES PERCENT AUTO 8 % (4-13); Mean Corpuscular HGB 25.1 pg (26.0-34.0); Mean Corpuscular HGB Conc 31.1 g/dL (31.5-36.5); Mean Corpuscular Volume 81 fL (80-100); Mean Platelet Volume 8.8 fL (9.1-12.4); NEUTROPHILS ABSOLUTE AUTO 4.85 K/mm3 (1.96-9.15); NEUTROPHILS PERCENT AUTO 54 % (41-73); Platelet Count 272 K/mm3 (150-400); RDW Coefficient Variation 15.2 % (11.7-14.2); RDW Standard Deviation 44.9 fL (35.1-46.3); Red Blood Cell Count 4.79 M/mm3 (4.30-5.90); White Blood Cell Count 8.93 K/mm3 (4.00-11.30)
[2023-10-24 04:31] LABS: Calcium, Blood 9.6 mg/dL (8.5-10.1); Creatinine, Blood 0.66 mg/dL (0.60-1.20); Potassium, Blood 4.1 mmol/L (3.5-5.5)
--- NOTE | 2023-10-24 04:46 | NUR ---
SHIFT SUMMARY NOC. PT POD 2 FOR LAP YINKA. PT A/O X4, PT MEDIATED FOR PAIN THIS SHIFT WITH REPORTED RELIEF. PT LAP SITES C/D/I. PT VOIDING URINE, PT DRINKING SMALL AMOUNT OF FLUIDS, ENCOURAGING PO. TPN RUNNING PER ORDERS. NEW POWERGLIDE PLACED THIS SHIFT. PT RESTED WITH EYES CLOSED AND CALL LIGHT IN REACH.
[2023-10-24 07:19] VITALS: BP 125/74
[2023-10-24] MEDS ORDERED: Mupirocin 2% Ointment 22 GM TOP SCH (14:00)
[2023-10-24 14:39] VITALS: BP 131/91
--- NOTE | 2023-10-24 17:41 | NUR ---
SUMMARY NO ACUTE CHANGES T/O SHIFT. PT ADVANCED TO REGULAR DIET THIS SHIFT. PPN DC'D PER ORDERS. PT AMBULATED IN MAHAN TWICE DURING SHIFT. REPORTS PASSED FLATUS. VOIDING. FAMILY MMBERS BEDSIDE. CALL LIGHT IN REACH.
[2023-10-24 19:18] VITALS: BP 129/79
[2023-10-25 02:00] VITALS: BP 149/91
--- NOTE | 2023-10-25 06:07 | NUR ---
SHIFT SUMMARY NOC. PT POD 3 FOR LAP YINKA. PT A/O X4, PT MEDICATED FOR PAIN THIS SHIFT WITH REPORTED RELIEF. PT LAP SITES C/D/I. PT VOIDING URINE, TOLERATING PO WITHOUT NAUSEA. REPORTS PASSING GAS, NO BM. PT AMBULATES TO BR WITH SBA AND WALKER. PT RESTED WITH EYES CLOSED AND CALL LIGHT IN REACH.
[2023-10-25 07:15] VITALS: BP 141/89
[2023-10-25] MEDS ORDERED: MUPIROCIN1 G1 TOP (11:22)
[2023-10-25] MEDS ORDERED: Percocet 5-3251 EACH PO (11:22)
[2023-10-25] MEDS ORDERED: FURO40 PO (11:23)
[2023-10-25] MEDS ORDERED: MIRALAX1714 PO (11:24)
== END 2023-10-25 12:00 | disposition home or self-care (01) | DRG 417 ==
LOC: ER 07:45 → SURS 10-15 → MEDS 10-15 → ERHOLD 10-15 → MEDS 10-15 02:53 → SURS 10-22 16:04
PROVIDERS: Emergency Medicine; Family Medicine; Internal Medicine; Student in an Organized Health Care Education/Training Program; Surgery; ADMIT Family Medicine
PROC: BF12YZZ Fluoroscopy of Gallbladder using Other Contrast (ICD-10-PCS; 2023-10-22)
PROC: 8E0W4CZ Robotic Assisted Procedure of Trunk Region, Percutaneous Endoscopic Approach (ICD-10-PCS; 2023-10-22)
PROC: 0FT44ZZ Resection of Gallbladder, Percutaneous Endoscopic Approach (ICD-10-PCS; principal; 2023-10-22 14:30)
DX: K85.10 Biliary acute pancreatitis without necrosis or infection (principal); K83.1 Obstruction of bile duct; E87.1 Hypo-osmolality and hyponatremia; Z68.41 Body mass index [BMI] 40.0-44.9, adult; N48.1 Balanitis; E87.6 Hypokalemia; R94.5 Abnormal results of liver function studies; D64.9 Anemia, unspecified; R60.0 Localized edema; R74.01 Elevation of levels of liver transaminase levels; E66.9 Obesity, unspecified; K81.9 Cholecystitis, unspecified; Z86.718 Personal history of other venous thrombosis and embolism; Z79.01 Long term (current) use of anticoagulants; Z79.899 Other long term (current) drug therapy
CPT/HCPCS: 36415; 71275; 74177; 74181; 76705; 80048; 80053; 81001; 82140; 83605; 83690; 83735; 84100; 84478; 84484; 85014; 85018; 85025; 85610; 85730; 87070; 87077; 87086; 87147; 87186; 87205; 88304; 93005; 93010; 93971; 94760; 94762; 96361; 96365-59; 96375-59; 96376-59; 99285-25; A9270; C1751; J0690; J0744; J1100; J1170; J1650; J1940; J2405; J2470; J2543; J2704; J2765; J3010; J3411; J3480; J7030; J7050; J7120; Q9967

== ENCOUNTER → 2023-11-08 | Outpatient (CLI) | payer OTHER ==
[~2023-11-08] MED LIST: ELIQUIS5 M3 PO; FURO40 PO; METOPROLOL TART25 MG PO; MIRALAX1714 PO; MUPIROCIN1 G1 TOP; Percocet 5-3251 EACH PO
[2023-11-08 14:41] LABS: BASOPHILS ABSOLUTE AUTO 0.07 K/mm3 (0.00-0.23); BASOPHILS PERCENT AUTO 1 % (0-2); EOSINOPHILS PERCENT AUTO 2 % (0-6); Hematocrit 44.8 % (37.0-53.0); Hemoglobin 14.1 g/dL (13.5-17.5); IMMATURE GRAN ABSOLUTE AUTO 0.06 K/mm3 (0.00-0.10); IMMATURE GRAN PERCENT AUTO 1 % (0-1); LYMPHOCYTES PERCENT AUTO 39 % (21-46); MONOCYTES PERCENT AUTO 9 % (4-13); Mean Corpuscular HGB 25.3 pg (26.0-34.0); Mean Corpuscular HGB Conc 31.5 g/dL (31.5-36.5); Mean Corpuscular Volume 80 fL (80-100); Mean Platelet Volume 9.7 fL (9.1-12.4); NEUTROPHILS PERCENT AUTO 49 % (41-73); Platelet Count 299 K/mm3 (150-400); RDW Coefficient Variation 15.4 % (11.7-14.2); RDW Standard Deviation 44.1 fL (35.1-46.3); Red Blood Cell Count 5.58 M/mm3 (4.30-5.90); White Blood Cell Count 9.03 K/mm3 (4.00-11.30)
[2023-11-08 15:25] LABS: Albumin, Blood 3.8 g/dL (3.4-5.0); Albumin/Globulin Ratio 0.9 (0.8-1.8); Bilirubin, Total 0.5 mg/dL (0.1-1.0); Calcium, Blood 9.7 mg/dL (8.5-10.1); Creatinine, Blood 0.75 mg/dL (0.60-1.20); Globulin, Blood 4.3 g/dL (2.2-4.0); Potassium, Blood 4.4 mmol/L (3.5-5.5); Thyroid Stimulating Hormone 2.813 uIU/mL (0.360-4.800); Total Protein, Blood 8.1 g/dL (6.4-8.2)
== END | disposition home or self-care (01) ==
LOC: LAB 14:38 → LAB SHORT 14:38
PROVIDERS: Family Medicine
DX: R00.0 Tachycardia, unspecified (principal)
CPT/HCPCS: 80053; 84443; 85025

== ENCOUNTER 2024-05-26 08:34 | Day surgery (SDC) | payer OTHER ==
[~2024-05-26] VITALS: Ht 182.9 cm; Wt 149.6 kg
[2024-05-26] MEDS ORDERED: Aspir 8181 MG PO (09:04)
[2024-05-26] MEDS ORDERED: CeFAZolin Sodium 3,000 MG VIAL ONE (09:08)
[2024-05-26] MEDS ORDERED: Lactated Ringer's 1,000 ML IV ONE ×2 (09:25→09:43)
[2024-05-26] MEDS ORDERED: Midazolam HCl 1MG / ML 2ML Vial ONE (09:48)
[2024-05-26] MEDS ORDERED: Ropivacaine 0.5% HCL/PF 5 MG/ML 30ML Vial ONE (09:49)
[2024-05-26] MEDS ORDERED: EPINEPhrine HCl 1 MG/ML 1ML Amp ONE (10:04)
[2024-05-26] MEDS ORDERED: Bupivacaine 0.5% W/EPI 1:200000 SDV 30 ML Vial ONE (10:04)
[2024-05-26] MEDS ORDERED: Rocuronium Bromide 10 MG/ML 5ML Injection IV ONE (10:08)
[2024-05-26] MEDS ORDERED: propofoL 20 ML IV ONE (10:08)
[2024-05-26] MEDS ORDERED: FentaNYL Citrate 50 MCG/ML 2 ML Injection ONE ×2 (10:08→12:39)
--- NOTE | 2024-05-26 10:09 | NUR ---
05/26/24 Juan Downing TIME OUT AT 0959. DR MARTELL PERFORMED NERVED BLOCK. PT TOLERATED PROCEDURE WILL.
[2024-05-26] MEDS ORDERED: Ketorolac Tromethamine 30mg Vial ONE (10:24)
[2024-05-26] MEDS ORDERED: Ondansetron HCl 2 MG / ML 2ML Vial ONE (10:24)
[2024-05-26] MEDS ORDERED: Dexamethasone Sod Phos 10 MG/ML 1ML VIAL ONE (10:24)
[2024-05-26] MEDS ORDERED: Sugammadex Sodium 200 MG/2ML SDV (100 MG/ML) ONE (11:19)
--- NOTE | 2024-05-26 12:22 | NUR ---
05/26/24 1222 Therese Patterson PT ARRIVES TO PACU ON RA. PT HYPOTENSIVE, DR. MARTELL AWARE. PT DENIES PAIN/NAUSEA, PT ASYMPTOMATIC W/ LOW BP. NO VISIBLE SIGNS OF DISTRESS NOTED.
--- NOTE | 2024-05-26 12:42 | NUR ---
05/26/24 1242 Therese Patterson PT TRANSFERRED TO RECLINER W/ ASSIST. PT ABLE TO PIVOT TRANSFER W/O PUTTING WEIGHT ON L LEG. PT'S FAMILY BROUGHT BACK TO BEDSIDE AT THIS TIME. PT TOLERATING PO LIQUIDS W/O COMPLAINT. VSS, ON RA.
[2024-05-26] MEDS ORDERED: OxyCODONE 5 mg/Acetamin 325 mg TABLET ONE (12:54)
[2024-05-26 13:02] VITALS: BP 133/77
== END 2024-05-26 13:47 | disposition home or self-care (01) ==
LOC: ORSCSDS 08:34
PROVIDERS: Podiatrist Foot & Ankle Surgery
PROC: 0SSG04Z Reposition Left Ankle Joint with Internal Fixation Device, Open Approach (ICD-10-PCS; principal; 2024-05-26 10:00)
PROC: 0LQT0ZZ Repair Left Ankle Tendon, Open Approach (ICD-10-PCS; principal; 2024-05-26 10:00)
PROC: 0SBG4ZZ Excision of Left Ankle Joint, Percutaneous Endoscopic Approach (ICD-10-PCS; principal; 2024-05-26 10:00)
PROC: 0MQR0ZZ Repair Left Ankle Bursa and Ligament, Open Approach (ICD-10-PCS; principal; 2024-05-26 10:00)
DX: M25.372 Other instability, left ankle (principal); M65.972 Unspecified synovitis and tenosynovitis, left ankle and foot; S93.432A Sprain of tibiofibular ligament of left ankle, initial encounter; S96.812A Strain of other specified muscles and tendons at ankle and foot level, left foot, initial encounter; V89.2XXA Person injured in unspecified motor-vehicle accident, traffic, initial encounter; E66.01 Morbid (severe) obesity due to excess calories; Z68.41 Body mass index [BMI] 40.0-44.9, adult; I10 Essential (primary) hypertension; Z79.899 Other long term (current) drug therapy
CPT/HCPCS: A9270; C1713; C1769; C1776; J0171; J0690; J1100; J1885; J2250; J2405; J2704; J2795; J3010; J7120

== ENCOUNTER → 2024-10-30 | Outpatient (CLI) | payer OTHER ==
[~2024-10-30] MED LIST changes: +Aspir 8181 MG PO
[2024-10-31 13:19] LABS: Stool Occult Blood Guaiac 1 Neg (Neg)
== END ==
LOC: LAB SHORT 11:45 → LAB 11:45 → LAB FUT 12-15 10:25
PROVIDERS: Nurse Practitioner Family
DX: Z00.01 Encounter for general adult medical examination with abnormal findings (principal); Z13.1 Encounter for screening for diabetes mellitus; Z13.220 Encounter for screening for lipoid disorders; Z12.5 Encounter for screening for malignant neoplasm of prostate
CPT/HCPCS: 82270